=== PATIENT | female | born 1965 | race Caucasian/White ===

== ENCOUNTER 2017-11-06 09:00 | Emergency (ER) | payer OTHER ==
[2017-11-06] MEDS ORDERED: Acetaminophen/HYDROcodone 325-7.5 MG Tab PO ONE (09:42)
[2017-11-06] MEDS ORDERED: Ketorolac 60 MG/2 ML SDV IM ONE (09:42)
--- NOTE | 2017-11-06 09:49 | EDM.PDOC ---
ED HPI GENERAL MEDICAL PROBLEM - General Chief Complaint: Back Pain or Injury Stated Complaint: BACK PAIN Time Seen by Provider: 11/06/17 09:36 - History of Present Illness INITIAL COMMENTS - FREE TEXT/NARRATIVE: HISTORY AND PHYSICAL: History of present illness: The patient is a 52-year-old female with no stated medical problems and no prior back history who presents with acute onset of lower back pain that started while she was helping load doors at work. Patient works at [employer] and was lifting doors overhead when she lost her footing and lost her balance but did not fall to the ground. When this occurred she caught herself but she felt a pull in her back. She continued working even though there was some discomfort and the pain progressed. She has no radiation of this pain to her legs and no neurosensory changes or weakness in her legs. Prior to these events she was in her usual state of good health. Patient says the pain is bilateral and is not upper back and has no urinary issues in the past or kidney stones. She did not take anything for the pain and came immediately from work. Patient states that position changes and standing make the pain worse Review of systems: As per history of present illness and below otherwise all systems reviewed and negative. Past medical history: As per history of present illness and as reviewed below otherwise noncontributory. Surgical history: As per history of present illness and as reviewed below otherwise noncontributory. Social history: No reported history of drug or alcohol abuse. Family history: As per history of present illness and as reviewed below otherwise noncontributory. Physical exam: Gen.: Well-developed well-nourished female who is nontoxic and moves slowly in the ED but is able to do so. Vital signs of been reviewed by me HEENT: Atraumatic, normocephalic, negative for conjunctival pallor or scleral icterus, mucous membranes moist, throat clear, neck supple, nontender, trachea midline. Lungs: Clear to auscultation, breath sounds equal bilaterally, chest nontender. Heart: S1S2, regular rate and rhythm no overt murmurs Abdomen: Soft, nondistended, nontender. NABS. Negative for costovertebral tenderness. Pelvis: Stable nontender. Genitourinary: Deferred. Rectal: Deferred. Extremities: Atraumatic, negative for cords or calf pain. Neurovascular unremarkable. Full range of motion without defects or deficits Neuro: Awake, alert, oriented. Cranial nerves II through XII unremarkable. Cerebellum unremarkable. Motor and sensory unremarkable throughout. Exam nonfocal. There are no focal deficits in the lower extremities and dorsi and plantar flexion is intact 5/5 inclusive of the great toe. Back: There are no midline step-offs in his defects of the thoracic or lumbar spine no CVA tenderness and no posterior pelvis tenderness. There is some mild tenderness to palpation of the lumbar musculature in the paraspinal area bilaterally without any soft tissue injuries Diagnostics: [] Therapeutics: Toradol Norflex Ladson Impression: Acute lumbar back strain Definitive disposition and diagnosis as appropriate pending reevaluation and review of above. Back Pain Score (Numeric/FACES): 7 - Related Data Allergies Allergy/AdvReac Type Severity Reaction Status Date / Time codeine Allergy Other Verified 11/06/17 09:31 meperidine [From Demerol] Allergy Other Verified 11/06/17 09:31 Home Meds: Home Meds . [No Known Home Meds] 11/06/17 [History] Past Medical History - Past Health History Medical/Surgical History: Denies Medical/Surgical History Social & Family History - Tobacco Use Smoking Status *Q: Current Every Day Smoker Years of Tobacco use: 20 Packs/Tins Daily: 0.5 Second Hand Smoke Exposure: No - Recreational Drug Use Recreational Drug Use: No ED ROS GENERAL - Review of Systems Review Of Systems: ROS reveals no pertinent complaints other than HPI. ED EXAM, GENERAL - Physical Exam Exam: See Below (See dictation) Course - Vital Signs Last Recorded V/S: Last Vital Signs Temp 36.7 C 11/06/17 09:31 Pulse 70 11/06/17 09:31 Resp 18 11/06/17 09:31 BP 139/75 11/06/17 09:31 Pulse Ox 93 L 11/06/17 09:31 - Orders/Labs/Meds Meds: Medications Discontinued Medications Generic Name Dose Route Start Last Admin Trade Name Freq PRN Reason Stop Dose Admin Hydrocodone Bitart/Acetaminophen 1 tab 11/06/17 09:42 Ladson 325-7.5 Mg PO 11/06/17 09:43 ONETIME ONE Ketorolac Tromethamine 60 mg 11/06/17 09:42 Toradol IM 11/06/17 09:43 ONETIME ONE Orphenadrine Citrate 60 mg 11/06/17 09:42 Norflex IM 11/06/17 09:43 ONETIME ONE Departure - Departure Time of Disposition: 09:47 Disposition: Home, Self-Care 01 Condition: Good Clinical Impression: Lumbar back sprain Qualifiers: Encounter type: initial encounter Qualified Code(s): S33.5XXA - Sprain of ligaments of lumbar spine, initial encounter - Discharge Information Referrals: PCP,None [Primary Care Provider] - Additional Instructions: The following information is given to patients seen in the emergency department who are being discharged to home. This information is to outline your options for follow-up care. We provide all patients seen in our emergency department with a follow-up referral. The need for follow-up, as well as the timing and circumstances, are variable depending upon the specifics of your emergency department visit. If you don't have a primary care physician on staff, we will provide you with a referral. We always advise you to contact your personal physician following an emergency department visit to inform them of the circumstance of the visit and for follow-up with them and/or the need for any referrals to a consulting specialist. The emergency department will also refer you to a specialist when appropriate. This referral assures that you have the opportunity for followup care with a specialist. All of these measure are taken in an effort to provide you with optimal care, which includes your followup. Under all circumstances we always encourage you to contact your private physician who remains a resource for coordinating your care. When calling for followup care, please make the office aware that this follow-up is from your recent emergency room visit. If for any reason you are refused follow-up, please contact the [facility] emergency department at and ask to speak to the emergency department charge nurse. [facility] Primary care- [place] [address] Please use medications as needed and prescribed. Please do not take over-the- counter ibuprofen if you're taking the diclofenac as they are in the same family. Use ice to area of back to help reduce inflammation and swelling for the next 24 hours and then switch to heat. Try to do all movements very slowly and try to move around to keep the area from getting stiff and. Please call and follow-up with one of her providers in the clinic in the next few days and return to ER as needed and as discussed. This pain will take some time to improve and may take up to 7-10 days. No heavy or strenuous lifting for the next one week
== END 2017-11-06 10:37 | disposition home or self-care (01) ==
LOC: MW.ED 09:00
DX: S33.5XXA Sprain of ligaments of lumbar spine, initial encounter (principal); F17.210 Nicotine dependence, cigarettes, uncomplicated; Z88.5 Allergy status to narcotic agent; Z88.8 Allergy status to other drugs, medicaments and biological substances; X50.0XXA Overexertion from strenuous movement or load, initial encounter
CPT/HCPCS: 96372; 99283; A9270; J1885; J2360

== ENCOUNTER 2019-03-04 15:49 | Emergency (ER) | payer OTHER ==
[2019-03-04] MEDS ORDERED: Benzocaine 20% Topical Spray UD MUCMEM ONE (15:56)
[2019-03-04] MEDS ORDERED: Lidocaine 2% Viscous Solution 15 ML Cup PO ONE (15:56)
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
[2019-03-04] MEDS ORDERED: Ketorolac 30 MG/ML SDV IVPUSH ONE (16:49)
[2019-03-04] MEDS ORDERED: Ketorolac 10 MG Tab PO ONE (16:59)
[2019-03-04 17:09] LABS: CHLORIDE,CL 104 mmol/L (98-107); SODIUM,NA 138 mmol/L (136-145)
== END 2019-03-04 17:31 | disposition home or self-care (01) ==
LOC: MW.ED 15:49
DX: M25.532 Pain in left wrist (principal); T14.8XXA Other injury of unspecified body region, initial encounter; Z88.5 Allergy status to narcotic agent; Z88.8 Allergy status to other drugs, medicaments and biological substances; V89.2XXA Person injured in unspecified motor-vehicle accident, traffic, initial encounter
CPT/HCPCS: 36415; 70450; 71045; 72125; 72170; 73100; 73110; 80053; 80305; 81001; 84484; 85025; 85610; 86850; 86900; 86901; 93005; 99284; A9270; G0480